=== PATIENT | male | born 1965 | race Caucasian/White ===

== ENCOUNTER 2024-12-22 10:41 | Inpatient (IN) | payer MEDICARE, MEDICAID ==
[~2024-12-22] VITALS: Ht 175.3 cm; Wt 81.8 kg
[~2024-12-22 10:41] MED LIST: HYDR25TA90 PO; LABE300T4 PO; MYCO360T PO; PRED5TAB49 PO; TACR0.5C20 PO
[2024-12-22 11:31] LABS: MEAN PLATELET VOLUME 9.1 FL (7.4-10.4); RED CELL DISTRIBUTION WIDTH 13.9 % (11.5-14.5)
[2024-12-22 11:36] LABS: LEUKOCYTE ESTERASE ,URINE NEGATIVE (Neg); NITRITES, URINE NEGATIVE (Neg); OCCULT BLOOD,URINE NEGATIVE (Neg)
[2024-12-22 11:39] LABS: UA COLLECTION TYPE VOIDED
[2024-12-22 11:40] LABS: CREATININE 1.33 MG/DL (0.60-1.10); TOTAL CARBON DIOXIDE 29.0 MMOL/L (24-32); eCRCL 61 ML/MIN; eGFR 55 ML/MIN
--- NOTE | 2024-12-22 11:41 | Physician Documentation ---
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 ates his provider initially put him on Cipro and it did not improve and he saw another provider and he was placed on 2 antibiotics but he does not know their name. He states that 1 was 4 times a day and 1 was once a day. His doctor told him to come to the ER for IV antibiotics. He denies any pain. States it is not necessarily worse but it has not improved since it started. He states there is a sore on the toe and he feels that is pretty new from a recent hike. Takes blood pressure medication. Does not need to take anything for diabetes. He was a type 1 diabetic. Patient states he had an x-ray a few days ago and he was told it did not show any infection in the bone. Tetanus witin 5 years: Yes Medication Reconciliation Allergies: Coded Allergies: egg (Verified Allergy, Intermediate, NAUSEA AND VOMITING, 07/24/13) diltiazem (Verified Allergy, Unknown, 07/24/13) morphine (Verified Allergy, Unknown, 07/24/13) Scheduled Labetalol Hcl (Labetalol Hcl), 300 MG PO BID, (Reported) Mycophenolate Sodium (Myfortic SR tablet), 360 MG PO DAILY, (Reported) Prednisone (Prednisone), 5 MG PO DAILY, (Reported) Tacrolimus Anhydrous* (Prograf*), 1 CAP PO BID, (Reported) Scheduled PRN Hydralazine Hcl* (Apresoline*), 25 MG PO Q6H PRN for high blood pressure, (Repo rted) Review of Systems All Other Systems at this time: Reviewed and Negative Physical Exam Vital Signs: Temperature: 98.4, Source: Temporal, Heart Rate: 66, Respiratory Rate: 16, BP: 122/70, Pulse Oximetry: 95, Weight: 81.800 Oxygen Flow Rate: 0 General Appearance: alert, WD/WN Head: normal inspection Neck: full range of motion Respiratory: no respiratory distress Chest: no accessory muscle use Ankle Right 3rd toe: Circumferential erythema with mild edema, mild erythema on the dorsum of the foot approximately 6 cm, lateral wound on the toe approximately 1 cm, palpable pulses, warm to touch Neurologic: oriented x4 Psychiatric: normal mood/affect Progress Results/Orders Results/Orders Orders - KELTON BENTLEY MD Culture Blood (12/22/24 11:05) Urinalysis, Cult If Indicated (12/22/24 11:05) Saline Lock (12/22/24 11:05) BMP (12/22/24 11:05) Lacticsepsis (12/22/24 11:05) Page Hospitalist (12/22/24 11:05) Fill Out Med Reconciliation (12/22/24 11:05) Page Hospitalist (12/22/24 11:05) Fill Out Med Reconciliation (12/22/24 11:05) Piperacillin/Tazo 3.375gm/50ml (Zosyn 3. (12/22/24 11:10) Completed Orders - KELTON BENTLEY MD Cbc/Diff (12/22/24 11:05) Vancomycin*Pharmacy To Dose* (Vancomycin (12/22/24 11:30) Vital Signs 12/22/24 12/22/24 12/22/24 10:42 10:52 10:59 Temp 98.4 Pulse 64 66 Resp 16 16 16 B/P (MAP) 128/74 122/70 (87) Pulse Ox 97 95 O2 Flow Rate 0 0 Laboratory Tests Test 12/22/24 11:18 12/22/24 11:22 White Blood Count 8.7 Red Blood Count 4.99 Hemoglobin 15.6 Hematocrit 45.5 Mean Corpuscular Volume 91.2 Mean Corpuscular Hemoglobin 31.2 H Mean Corpuscular Hemoglobin Concent 34.2 Red Cell Distribution Width 13.9 Platelet Count 218 Mean Platelet Volume 9.1 Neutrophils (%) (Auto) 84.8 H Lymphocytes (%) (Auto) 8.3 L Monocytes (%) (Auto) 6.2 Eosinophils (%) (Auto) 0.4 Basophils (%) (Auto) 0.3 Neutrophils # (Auto) 7.3 Lymphocytes # (Auto) 0.7 L Monocytes # (Auto) 0.5 Eosinophils # (Auto) 0.0 Basophils # (Auto) 0.0 CBC Comment Chemistry Comments Urine Comment Medical Decision Making Additional Comment Patient in with cellulitis of the right foot. He has failed outpatient antibiotics. He is otherwise stable and well-appearing. Discussed with the hospitalist team who will bring him in for IV antibiotic treatment. Patient did state that he would prefer to go home with an IV and do IV antibiotics at home and I discussed with him that he may need this longer term but initially he has to be admitted to the hospital. Discussed that he may need an MRI of the foot to rule out osteomyelitis. Started him on vancomycin and Zosyn. Labs are pending. Departure Disposition: ADMITTED INPATIENT Admitted to Inpatient Unit: to hospitalist Admission Level of Care: Med/Surg Impression: Primary Impression: Cellulitis of right foot Referrals: NO PRIMARY CARE PROVIDER (PCP) Signature Scribe Signature: No scribe used Attestation: No scribe needed KELTON BENTLEY MD Dec 22, 2024 11:41
[2024-12-22] MEDS: piperacillin/tazo 3.375gm/50ml 50 ML IV ONE (11:44)
[2024-12-22] MEDS ORDERED: magnesium hydroxide 30ml (MOM) UD suspension PO PRN (12:20)
[2024-12-22] MEDS ORDERED: potassium Cl 40MEQ/1/2NS 520ml 520 ML IV PRN (12:20)
[2024-12-22] MEDS ORDERED: potassium Cl 20 mEq SR tablet PO PRN ×2 (12:20)
[2024-12-22] MEDS ORDERED: magnesium Cl slow-release 64mg tablet PO PRN (12:20)
[2024-12-22] MEDS ORDERED: magnesium sulf-water 2g/50mL 50 ML IV PRN (12:20)
[2024-12-22] MEDS ORDERED: magnesium sulf-water 4G/100mL 100 ML IV PRN (12:20)
[2024-12-22] MEDS ORDERED: mag hydrox/Alum hydrox/simeth 30ml oral suspension PO PRN (12:20)
[2024-12-22] MEDS ORDERED: ondansetron/PF 4mg/2ml inj IV PRN (12:20)
[2024-12-22] MEDS: vancomycin/NS 1 GM ADD-VANTAGE 250 ML IV ONE (12:25)
[2024-12-22] MEDS: normal saline 1000ml 1,000 ML IV SCH (13:23)
[2024-12-22] MEDS ORDERED: AMLO5TAB16 PO (13:30)
[2024-12-22] MEDS ORDERED: TACR1CAP (13:30)
[2024-12-22] MEDS ORDERED: AZAT75TA2 (13:30)
[2024-12-22] MEDS ORDERED: PRE5T PO (13:30)
[2024-12-22] MEDS ORDERED: DOXY-224 PO (13:30)
[2024-12-22] MEDS ORDERED: METO50TA16 (13:31)
[2024-12-22] MEDS ORDERED: LISI5TAB22 PO (13:31)
[2024-12-22] MEDS ORDERED: CHOL1LIQ (13:33)
[2024-12-22 14:33] VITALS: BP 120/69; PULSE 66; RESP 16; TEMP 97.6; O2SAT 96
[2024-12-22 15:23] VITALS: RESP 16
[2024-12-22] MEDS ORDERED: METO50TA16 PO (17:45)
[2024-12-22] MEDS ORDERED: AZAT75TA PO (17:47)
--- NOTE | 2024-12-22 17:50 | HISTORY AND PHYSICAL-Residence ---
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 The patient noted onset of an ulcer approximately 1 week ago and was initially evaluated by Dr. Goff on Wednesday, at which time he was started on oral antibiotics. Due to worsening symptoms, he sought care at [facility] on Wednesday, where he was prescribed two additional oral antibiotics for home use. Despite this, his wound continued to worsen, prompting todays ED presentation. The ulcer is round, with white pustular discharge on the lateral aspect of the right 3rd toe,. At [facility] as per patient x-rays showed no possible infection in the bone. He denies fevers, chills, chest pain, shortness of breath, or systemic symptoms. On arrival, vital signs were stable. Laboratory workup showed normal lactic acid and procalcitonin, normal WBC count, but elevated creatinine. The patient is maintained on immunosuppressive therapy with azathioprine and tacrolimus, and antihypertensive therapy including lisinopril, amlodipine, and metoprolol. He has a known allergy to morphine. Lives at home with Ambulates independently Allergies: Coded Allergies: egg (Verified Allergy, Intermediate, NAUSEA AND VOMITING, 07/24/13) diltiazem (Verified Allergy, Unknown, 07/24/13) morphine (Verified Allergy, Unknown, 07/24/13) Home Medications Home Medications Active Reported Vitamin D3 (Cholecalciferol (Vitamin D3)) 1 Million Unit/Gram Liquid BID Lisinopril 5 Mg Tablet 1 Tab PO DAILY Metoprolol Tartrate 50 Mg Tablet Azathioprine 75 Mg Tablet predniSONE tablet (Prednisone) 5 Mg Tablet 1 Tab PO DAILY Amlodipine Besylate 5 Mg Tablet 1 Tab PO DAILY Prograf (Tacrolimus) 1 Mg Capsule Doxycycline Hyclate 100 Mg Capsule 1 Cap PO BID Prednisone 5 Mg Tab.ds.pk 5 Mg PO DAILY Prograf* (Tacrolimus) 0.5 Mg Capsule 1 Cap PO BID Past Medical History Past Medical History Type 1 diabetes mellitus Status post renal and pancreatic transplant Hypertension Past Surgical History Surgical History Comment Cataract surgery Status post Pancreatic transplant 31 years ago Status post Renal transplant 30 years ago and 11 years ago Past Social History Social History Comment Denied smoking, alcohol and illicit drug use ROS ROS Constitutional: No fever, chills, dizziness, weight gain or loss Eyes: No pain, erythema, discharge, blurring of vision ENT: No sore throat, epistaxis, tinnitus Cardiovascular: No Chest pressure, chest discomfort, palpitations, syncope, lower extremity edema, paroxysmal nocturnal dyspnea Respiratory: No Shortness of breath and cough present, No hemoptysis Gastrointestinal: Normal appetite. No nausea, vomiting, diarrhea, constipation, hematemesis, abdominal pain, bloating, melena or fresh blood Musculoskeletal:chronmic edema. Integumentary: No change in skin, hair, nails. No swelling, bruising, abrasions Psychiatric: No delusions, depression, loss of interest in normal activity or change in sleep pattern, hallucinations, suicidal ideations Endocrine: No fatigue, weakness, polydipsia, polyuria, change in appetite, heat or cold intolerance, sweating, dry skin Hematological: No bleeding, petechiae, bruising Allergies: No asthma or urticaria Exam Vitals: Vital Signs Date Time Temp Pulse Resp B/P (MAP) Pulse Ox O2 Delivery O2 Flow Rate FiO2 12/22/24 15:23 16 Room Air 12/22/24 14:33 97.6 66 120/69 (86) 96 12/22/24 13:00 0 General: Awake , alert, and oriented x4, resting comfortably in the bed, in no acute distress HEENT: Atraumatic, normocephalic, EOMI, anicteric sclera ; pink conjunctiva Neck: Trachea midline. Supple, full range of motion, no JVD Cardiac: Regular rhythm, regular rate with no murmurs all over the precordium. Respiratory: Equal breath sounds bilaterally, no tachypnea, no wheezing ,rub or rales, Chest wall is symmetric and without deformity. Gastrointestinal: Abdomen symmetric, non-distended, soft, non-tender, normal bowel sounds x4 quadrant, normoactive, no hepatosplenomegaly Musculoskeletal: No pedal edema, no cyanosis ulcer is round, with white pustular discharge on the lateral aspect of the right 3rd toe Skin: Warm and dry RESIDENT MANAGER: No FNDs, Reflexes 2+, CN examination normal Diagnostic Data Last Recorded Lab Results: 12/22/24 1118 12/22/24 1118 Advance Care Planning Advanced Care plannin - 30 Minutes Additional Plan This is a 59-year-old immunosuppressed male with history of type 1 diabetes mellitus, pancreas and renal transplants (x2), hypertension, and chronic kidney disease, presenting with a worsening diabetic foot ulcer of the right lateral foot. 1. Right foot ulcer with overlying cellulitis and concern for osteomyelitis History of diabetes mellitus and immunosuppression from renal/pancreas transplant. Ulcer with purulent discharge, nonhealing despite outpatient antibiotics, and prior x-ray reportedly showing no bony involvement. Worsened despite multiple outpatient oral antibiotics, now presenting with non- resolving infection in an immunosuppressed transplant patient No signs of sepsis, normal WBC count, LA and procalcitonin Plan: CT Right lower extremity ordered Initiated IV broad-spectrum antibiotics Unasyn 1.5gm Q6h daily for covering Strep, MSSA, Gram negatives, anerobes ( renal dosing) Obtained wound culture and blood cultures. ESR Normal, no need of further imaging (MRI) for now Wound care consult for local wound management. 2. Chronic Immunosuppression (Post Pancreas and Renal Transplants) On tacrolimus and azathioprine. Elevated creatinine noted 1.33; renal function must be closely monitored Plan: Daily BMP, monitor tacrolimus trough. Renal dosing of all antibiotics and supportive medications. Continue immunosuppressants tacrolimus and azathioprine as tolerated Continue prednisolone-home regimen 3. Chronic Kidney Disease with Elevated Creatinine Baseline unclear, but at risk given transplant history. Plan: Avoid nephrotoxic agents, ensure appropriate hydration NS 100 cc/hr. 4. Type 1 Diabetes Mellitus (Post Pancreas Transplant) History of pancreas transplant, currently not on dialysis and not requiring insulin. Plan: Monitor blood glucose closely; adjust regimen if hyperglycemia develops A1c Ordered 5. Hypertension On lisinopril, amlodipine, and metoprolol. Plan: Continue current regimen, monitor BP closely; hold MELODY inhibitors Allergy: Morphine Avoid morphine, use alternative analgesics (hydromorphone, fentanyl, or non- opioid regimen) Code Status: Full code DVT Prophylaxis: Heparin SQ Lines: PIV Disposition: Contine IV antibiotics Maia Torre Internal Medicine Resident, PGY2 Date of Service: Dec 22, 2024 Billing Provider: PAKO BUTLER MD, GAURAV, RES Dec 22, 2024 17:50
--- NOTE | 2024-12-22 18:04 | RADIOLOGY REPORT ---
EXAM: CT CT LOWER EXTREMITY INDICATION: Right 3rd toe cellulitis TECHNIQUE: Axial images of right lower extremity have been obtained along with coronal and sagittal r eformatted images. All CT scans at this facility use dose modulation, iterative reconstruction, and/o r weight based dosing when appropriate to reduce radiation dose to as low as reasonably achievable. COMPARISON: None FINDINGS: BONES: No CT evidence of an acute fracture. Trace soft tissue emphysema along the dorsal aspect of t he 3rd proximal phalangeal head which is a secondary imaging finding of osteomyelitis and maintain el evated concern. Bone island of the 1st metatarsal head sclerosis of the hallux sesamoids. No definiti ve osseous erosion. MUSCLES: Mild to moderate fatty infiltration of the intrinsic musculature. JOINT SPACES: No joint effusion. TENDONS/LIGAMENTS: Intact. OTHER: No abnormal osseous erosion, lucency, sclerosis to suggest osteomyelitis. Vascular calcificati ons. Possible sequelae of prior injury along the plantar aspect of the medial cuneiform. IMPRESSION: 1. race soft tissue emphysema along the dorsal aspect of the 3rd proximal phalangeal head which is a secondary imaging finding of osteomyelitis and maintain elevated concern.
--- NOTE | 2024-12-22 18:25 | CONSULTATION REPORT ---
Consult Providers to CC ~ History of Present Illness Reason for Admit\Complaint: Toe wound History of Present Illness He is a 59 yo man with history of DM1 since childhood, he is s/p renal transplant X 2 with a pancrea transplant as well. He has chronic immunosupresion, with prednisone Azathioprine, and Tacrolimus, if a Tacro level has not been drawn we will do so, he reports a wound on his toe that was evaluated on 2 occasions this week, on by his surgeon and at the [facility], he was prescribed oral AB, with no improvement he came to the Ed for evaluation, CT showed finding suggestive of osteomyelitis which is worrisome, he reports very little pain in his foot with his neuropathy, his renal function is near his baseline at this time Allergies: Coded Allergies: egg (Verified Allergy, Intermediate, NAUSEA AND VOMITING, 07/24/13) diltiazem (Verified Allergy, Unknown, 07/24/13) morphine (Verified Allergy, Unknown, 07/24/13) Home Medications Home Medications Active Metoprolol Tartrate 50 Mg Tablet 50 Mg PO BID 30 Days Reported Azasan (Azathioprine) 75 Mg Tablet 75 Mg PO DAILY 30 Days Vitamin D3 (Cholecalciferol (Vitamin D3)) 1 Million Unit/Gram Liquid BID Lisinopril 5 Mg Tablet 1 Tab PO DAILY predniSONE tablet (Prednisone) 5 Mg Tablet 1 Tab PO DAILY Amlodipine Besylate 5 Mg Tablet 1 Tab PO DAILY Prograf (Tacrolimus) 1 Mg Capsule Doxycycline Hyclate 100 Mg Capsule 1 Cap PO BID Prednisone 5 Mg Tab.ds.pk 5 Mg PO DAILY Prograf* (Tacrolimus) 0.5 Mg Capsule 1 Cap PO BID Past Medical History Past Medical History Reviewed Past Surgical History Surgical History Comment Reviewed Past Social History Social History Comment Reviewed Exam Vitals: Vital Signs Date Time Temp Pulse Resp B/P (MAP) Pulse Ox O2 Delivery O2 Flow Rate FiO2 12/22/24 15:23 16 Room Air 12/22/24 14:33 97.6 66 120/69 (86) 96 12/22/24 13:00 0 Alert, does not appear ill RRR w/o murmur CTA B, no wheezes +BS, Nt No edema, dressing clean and dry Diagnostic Data Last Recorded Lab Results: 12/22/24 1118 12/22/24 1118 Problems: (1) Acute kidney injury superimposed on CKD Assessment & Plan: Most consitent with both illness and poor intake for a period of time, agree with initial NS IVF resuscitation, monitor for hyperchloremic acidosis, daily renal panel INA should be ordered Daily urine Cr, Na, Urea (2) History of simultaneous kidney and pancreas transplant Assessment & Plan: Continue current immunosuppression regimen (3) Immunosuppressed status Assessment & Plan: Jeanine ue current regimen, agree with Tacro level, avoid any medication that would work on the P450 system to avoid changes in his Tacro levels (4) Cellulitis of right foot Status: Acute Assessment & Plan: Continue current regimen for now, awaiting culture results WILVER AERNAS III DO Dec 22, 2024 18:25
--- NOTE | 2024-12-22 18:47 | DISCHARGE SUMMARY-Residence ---
Discharge Summary Providers to CC Resident Creating Document: MAIA FUNK, RES ~ Discharge Summary Admission Diagnosis: Cellulitis and right toe wound Hospital Course DATE OF ADMISSION: DATE OF DISCHARGE: Discharge Diagnosis\Comment: 1. Right foot ulcer with overlying cellulitis and concern for osteomyelitis History of diabetes mellitus and immunosuppression from renal/pancreas transplant. 2. Chronic Immunosuppression (Post Pancreas and Renal Transplants) 3. Chronic Kidney Disease with Elevated Creatinine 4. Type 1 Diabetes Mellitus (Post Pancreas Transplant) 5. 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 The patient noted onset of an ulcer approximately 1 week ago and was initially evaluated by Dr. Goff on Wednesday, at which time he was started on oral antibiotics. Due to worsening symptoms, he sought care at [facility] on Wednesday, where he was prescribed two additional oral antibiotics for home use. Despite this, his wound continued to worsen, prompting todays ED presentation. The ulcer is round, with white pustular discharge on the lateral aspect of the right 3rd toe,. At [facility] as per patient x-rays showed no possible infection in the bone. He denies fevers, chills, chest pain, shortness of breath, or systemic symptoms. On arrival, vital signs were stable. Laboratory workup showed normal lactic acid and procalcitonin, normal WBC count, but elevated creatinine. The patient is maintained on immunosuppressive therapy with azathioprine and tacrolimus, and antihypertensive therapy including lisinopril, amlodipine, and metoprolol. He has a known allergy to morphine. 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 He presented to the emergency department with a one-week history of a right lateral foot ulcer with surrounding erythema, swelling, and purulent drainage. He had been seen by his primary physician and at [facility], where he received oral antibiotics and x-rays, which reportedly showed no evidence of osteomyelitis. Despite prior outpatient therapy, the ulcer persisted, prompting ED presentation. On admission, the patient was hemodynamically stable and afebrile. Laboratory studies were notable only for mildly elevated creatinine; white blood cell count, lactic acid, and procalcitonin were within normal limits. Physical examination demonstrated a round ulcer with purulent discharge and surrounding cellulitic changes. Given his immunosuppressed status and ongoing infection, he was started on IV ampicillinsulbactam (Unasyn) at a renal-adjusted dose, and wound cultures were obtained for guidance. The patient remained clinically stable, with no systemic signs of sepsis. Prior to completion of the IV antibiotic course and further evaluation, he chose to leave the hospital against medical advice (AMA). He was counseled extensively regarding the risks of infection progression, potential complications, and the importance of follow-up. Physical examination today: Awake , alert, and oriented x4, resting comfortably in the bed, in no acute distress HEENT: Atraumatic, normocephalic, EOMI, anicteric sclera ; pink conjunctiva Neck: Trachea midline. Supple, full range of motion, no JVD Cardiac: Regular rhythm, regular rate with no murmurs all over the precordium. Respiratory: Equal breath sounds bilaterally, no tachypnea, no wheezing ,rub or rales, Chest wall is symmetric and without deformity. Gastrointestinal: Abdomen symmetric, non-distended, soft, non-tender, normal bowel sounds x4 quadrant, normoactive, no hepatosplenomegaly Musculoskeletal: No pedal edema, no cyanosis ulcer is round, with white pustular discharge on the lateral aspect of the right 3rd toe Skin: Warm and dry MACHINE TURNER: No FNDs, Reflexes 2+, CN examination normal *Problems/Diagnosis: (1) Acute kidney injury superimposed on CKD (2) History of simultaneous kidney and pancreas transplant (3) Immunosuppressed status (4) Cellulitis of right foot Status: Acute Total Time Spent on D/C: > 30 Minutes Date of Service: Dec 22, 2024 Billing Provider: PAKO BUTLER MD, GAURAV, RES Dec 22, 2024 18:46
[2024-12-22] MEDS ORDERED: ampicill/sulbac 1.5gm/NS 100ml 100 ML IV SCH (20:00)
[2024-12-22] MEDS ORDERED: heparin, porcine 5000 units/ml vial SQ SCH (20:00)
[2024-12-22] MEDS ORDERED: tacrolimus anhydrous 0.5mg capsule PO SCH (20:00)
[2024-12-22] MEDS ORDERED: K and/or MAG REPLACEMENT MC SCH (20:00)
[2024-12-22] MEDS ORDERED: docusate sod 100mg capsule PO SCH (20:00)
[2024-12-23] MEDS ORDERED: PREDNISONE 5 MG PO SCH (08:00)
== END 2024-12-22 18:35 | disposition left against medical advice (07) | DRG 638 ==
LOC: ER 10:41 → ED HOLD 11:23 → EDBEDREQ 13:37 → SUR 3N 14:21
PROVIDERS: ADMIT Internal Medicine; ATTEND Internal Medicine
DX: E10.69 Type 1 diabetes mellitus with other specified complication (principal); D84.89 Other immunodeficiencies; L03.115 Cellulitis of right lower limb; L97.518 Non-pressure chronic ulcer of other part of right foot with other specified severity; T86.99 Other complications of unspecified transplanted organ and tissue; M86.9 Osteomyelitis, unspecified; N17.9 Acute kidney failure, unspecified; E10.621 Type 1 diabetes mellitus with foot ulcer; E10.40 Type 1 diabetes mellitus with diabetic neuropathy, unspecified; E10.22 Type 1 diabetes mellitus with diabetic chronic kidney disease; Y83.8 Other surgical procedures as the cause of abnormal reaction of the patient, or of later complication, without mention of misadventure at the time of the procedure; N18.9 Chronic kidney disease, unspecified; Z88.8 Allergy status to other drugs, medicaments and biological substances; Z91.012 Allergy to eggs; Z88.5 Allergy status to narcotic agent; Y92.89 Other specified places as the place of occurrence of the external cause
CPT/HCPCS: 36415; 73700; 80048; 81003; 83036; 83605; 84145; 85025; 85651; 87040; 87081; 99285; A6402; G0378; J2543; J3373; J7030